=== PATIENT | male | born 1990 | race Caucasian/White ===

== ENCOUNTER 2016-04-22 19:04 | Emergency (ER) | payer SELFPAY ==
[2016-04-22 21:17] VITALS: BP 122/76
== END 2016-04-23 02:20 | disposition left against medical advice (07) ==
LOC: ED 19:04
DX: S62.606A Fracture of unspecified phalanx of right little finger, initial encounter for closed fracture (principal); W23.0XXA Caught, crushed, jammed, or pinched between moving objects, initial encounter; Y93.9 Activity, unspecified; Y99.8 Other external cause status; Y92.89 Other specified places as the place of occurrence of the external cause; Z53.21 Procedure and treatment not carried out due to patient leaving prior to being seen by health care provider